=== PATIENT | male | born 1965 | race Caucasian/White ===

== ENCOUNTER 2022-02-11 08:49 | Outpatient (CLI) | payer BC ==
[2022-02-11] MEDS ORDERED: Iopamidol 370 76% 100 ML VIAL ONE (15:39)
== END 2022-02-11 08:50 | disposition home or self-care (01) ==
LOC: CSHCT 08:49
PROVIDERS: ATTEND Internal Medicine Cardiovascular Disease
DX: I70.201 Unspecified atherosclerosis of native arteries of extremities, right leg (principal); I77.811 Abdominal aortic ectasia
CPT/HCPCS: 75635; 82565; Q9967

== ENCOUNTER 2023-06-01 07:28 | Outpatient (CLI) | payer BC ==
[2023-06-01] MEDS ORDERED: Iopamidol 300 61% 100 ML VIAL FS ONE (09:51)
== END 2023-06-01 07:29 | disposition home or self-care (01) ==
LOC: CSHCT 07:28
PROVIDERS: ATTEND Student in an Organized Health Care Education/Training Program
DX: R06.02 Shortness of breath (principal); R06.09 Other forms of dyspnea
CPT/HCPCS: 71260

== ENCOUNTER 2023-12-12 11:33 | Outpatient (CLI) | payer BC | END 2023-12-12 11:34 | disposition home or self-care (01) | LOC: CSHCP 11:33 | PROVIDERS: ATTEND Internal Medicine | DX: J45.990 Exercise induced bronchospasm (principal); R09.02 Hypoxemia | CPT/HCPCS: 94618 ==